=== PATIENT | female | born 1995 | race Caucasian/White ===

== ENCOUNTER 2017-01-27 16:24 | Emergency (ER) | payer BC ==
[2017-01-27] MEDS ORDERED: traMADol 50 MG Tab PO ONE (16:45)
[2017-01-27 17:16] VITALS: BP 112/54
--- NOTE | 2017-01-27 17:29 | EDM.PDOC ---
ED HPI ENT - General Chief Complaint: ENT Problem Stated Complaint: JAW PAIN Time Seen by Provider: 01/27/17 16:30 Source: Reports: Patient, Family History Limitations: Reports: No limitations - History of Present Illness INITIAL COMMENTS - FREE TEXT/NARRATIVE: 21 years old w f came to the ed due to pain at her right TMJ for one year. She has now more pain and sometimes she can not open mouth because it locks. Pt denied trauma. She took Motrin for pain in the past. Pt denied other acute medical issues at this time. 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 - Related Data Allergies/ADRs: Allergies Allergy/AdvReac Type Severity Reaction Status Date / Time acetaminophen [From Vicodin] Allergy Rash Verified 01/27/17 17:06 hydrocodone [From Vicodin] Allergy Rash Verified 01/27/17 17:06 Home Meds: Home Meds traMADol [Ultram] 50 mg PO Q4H PRN #20 tab 01/27/17 [Rx] Past Medical History [employer]PER[employer]OR History: Reports: Spontaneous - Past Surgical History HEENT Surgical History: Reports: Tonsillectomy Social & Family History - Tobacco Use Smoking Status *Q: Current Every Day Smoker Years of Tobacco use: 10 Packs/Tins Daily: 1 - Caffeine Use Caffeine Use: Reports: None - Alcohol Use Days Per Week of Alcohol Use: 1 Number of Drinks Per Day: 2 Total Drinks Per Week: 2 - Recreational Drug Use Recreational Drug Use: No ED ROS ENT - Review of Systems Review Of Systems: See Below Constitutional: Reports: no symptoms HEENT: Reports: Other (TML pain) Respiratory: Reports: No Symptoms Cardiovascular: Reports: No symptoms Endocrine: Reports: no symptoms GI/Abdominal: Reports: No symptoms : Reports: no symptoms Musculoskeletal: Reports: no symptoms Skin: Reports: no symptoms Neurological: Reports: No Symptoms Psychiatric: Reports: No symptoms Hematologic/Lymphatic: Reports: no symptoms Immunologic: Reports: no symptoms ED EXAM, ENT - Physical Exam Exam: See Below Exam Limited By: No limitations General Appearance: alert, WD/WN, mild distress Eye Exam: bilateral eye: normal inspection Ears: normal external exam, normal canal Nose: normal inspection, normal mucousa, no blood Mouth/Throat: Other (tender TMJ ) Head: atraumatic, normocephalic Neck: normal inspection, supple, non-tender, full range of motion Respiratory/Chest: no respiratory distress, lungs clear, normal breath sounds Cardiovascular: normal peripheral pulses, regular rate, rhythm, no edema GI/Abdominal: normal bowel sounds, soft, non tender, no organomegaly (Female) Exam: Deferred Rectal (Female) Exam: Deferred Back: normal inspection, full range of motion Extremities: normal inspection, normal range of motion, non-tender, no pedal edema Neurological: alert, oriented, CN II-XII intact, normal cognition, normal gait Psychiatric: normal affect, normal mood Skin: Warm, Dry, Intact, Normal color, No rash Lymphatic: no adenopathy Course - Vital Signs Text/Narrative:: 21 years old w f came to the ed due to pain at her right TMJ for one year. She has now more pain and sometimes she can not open mouth because it locks. Pt denied trauma. She took Motrin for pain in the past. Pt denied other acute medical issues at this time PE: left TMJ pain. limited ROM of TMJ Imaging: NAD, official report is pending Impression: TMJ pain/tenderness Tx: Ultram Plan: D/C with instructions Last Recorded V/S: Last Vital Signs Temp 36.6 C 01/27/17 16:30 Pulse 76 01/27/17 17:10 Resp 15 01/27/17 17:10 BP 112/54 L 01/27/17 17:10 Pulse Ox 98 01/27/17 17:10 - Orders/Labs/Meds Orders: Active Orders 24 hr Category Date Time Status TMJ Open And Closed Bi [CR] Stat Exams 01/27/17 16:44 Taken Meds: Medications Discontinued Medications Generic Name Dose Route Start Last Admin Trade Name Terrellq PRN Reason Stop Dose Admin Tramadol HCl 100 mg 01/27/17 16:45 01/27/17 17:08 Ultram PO 01/27/17 16:46 100 mg ONETIME ONE Administration Departure - Departure Time of Disposition: 17:26 Disposition: Home, Self-Care 01 Condition: good Clinical Impression: TMJ (sprain of temporomandibular joint) Qualifiers: Encounter type: subsequent encounter Qualified Code(s): S03.40XD - Sprain of jaw, unspecified side, subsequent encounter Prescriptions: traMADol [Ultram] 50 mg PO Q4H PRN #20 tab PRN Reason: severe pain Instructions: Jaw Range of Motion Exercises Referrals: Tesfaye Banuelos MD [Primary Care Provider] - Forms: ED Department Discharge Additional Instructions: Please take the meds as recommended, ice to the affected area, please f/u with ENT or your Dentist. Please come back if the symptoms get worse acutely - My Orders Last 24 Hours: My Active Orders 01/27/17 16:44 TMJ Open And Closed Bi [CR] Stat - Assessment/Plan Last 24 Hours: My Active Orders 01/27/17 16:44 TMJ Open And Closed Bi [CR] Stat
--- NOTE | 2017-01-28 12:25 | CR ---
INDICATION: Jaw pain. TMJ X-RAYS OPEN AND CLOSED, BILATERAL: Seven images of the TMJs, open and closed, 01/27/2017. No comparisons available. Open and closed appearance appears to be normal. No evidence of dislocation or entrapment is seen. IMPRESSION: Normal appearing TMJs. If symptoms persist, additional examination such as MRI and possibly TMJ arthrography may be helpful. MTDD
== END 2017-01-27 17:33 | disposition home or self-care (01) ==
LOC: FB.ED 16:24
DX: S03.4 Sprain of jaw (principal); F17.210 Nicotine dependence, cigarettes, uncomplicated; Z98.890 Other specified postprocedural states; Z88.5 Allergy status to narcotic agent; X58.XXXD Exposure to other specified factors, subsequent encounter
CPT/HCPCS: 70330; 99283; A9270